=== PATIENT | male | born 1990 | race Two or more races ===

== ENCOUNTER 2020-06-19 23:02 | Emergency (ER) | payer MEDICAID ==
[2020-06-19] MEDS ORDERED: LORazepam 2 MG/ML SDV IVPUSH ONE (23:26)
--- NOTE | 2020-06-19 23:27 | EDM.PDOC ---
ED HPI GENERAL MEDICAL PROBLEM - General Chief Complaint: Drug or Alcohol Abuse Stated Complaint: HIGH BLOOD PRESSURE, DETOX Time Seen by Provider: 06/19/20 23:04 - History of Present Illness INITIAL COMMENTS - FREE TEXT/NARRATIVE: 30-year-old male with history of alcohol abuse who typically drinks half a liter to 1 L of liquor daily last drink at 4 AM or roughly 20 hours ago who is presenting with tremors anxiety and palpitations. Patient reports that only a few days ago he nearly completed detox and has been weaned down on Librium. However he left detox and immediately started drinking again drink for 2 days and stopped at 4 AM. He comes down here to try and live with his grandparents and stop drinking. He reports a history of epilepsy as well he takes medical marijuana as well as medicines for hypertension. He reports that he did take a dose of his medical marijuana this evening. No abdominal pain no nausea no vomiting no chest pain no shortness of breath. Symptoms are constant gradually worsening improved by alcohol no radiation or other associated symptoms. He denies hallucinations. - Related Data Allergies Allergy/AdvReac Type Severity Reaction Status Date / Time clarithromycin [From Biaxin] Allergy Rash Verified 06/19/20 23:14 risperidone [From Risperdal] Allergy Rash Verified 06/19/20 23:14 Home Meds: Home Meds OXcarbazepine [Trileptal] 450 mg PO BID 06/19/20 [History] levETIRAcetam [Keppra] 1,500 mg PO BID 06/19/20 [History] chlordiazePOXIDE [Librium] 25 mg PO TID PRN 3 Days #12 cap 06/20/20 [Rx] ED ROS GENERAL - Review of Systems Review Of Systems: See Below Free Text/Narrative/Comment: General: No fever. Skin: No rash. Eyes: No vision problems. ENT: No sore throat. Neck: No neck stiffness. Respiratory: No shortness of breath. Cardiac: No chest pain. Gastrointestinal: No nausea, vomiting or abdominal pain. Urinary: No dysuria. Musculoskeletal: No myalgias/arthralgias. Neurologic: Per HPI ED EXAM, GENERAL - Physical Exam Exam: See Below Free Text/Narrative:: General Appearance: No acute distress, appears comfortable Skin: No rash HEENT: Normocephalic/atraumatic, sclera anicteric, mucous membranes moist Neck: Normal range of motion Chest and Lungs: Bilateral breath sounds, clear to auscultation Cardiovascular: Minimally tachycardic rate regular rhythm Abdomen: Soft, non-tender Back: Normal Musculoskeletal: No edema or tenderness Neurologic: Tremor with tongue fasciculations mild anxiety, no internal stimuli no seizure-like activity, no diaphoresis Psychiatric: Appropriate, cooperative Course - Vital Signs Last Recorded V/S: Last Vital Signs Temp 97.3 F 06/19/20 23:19 Pulse 102 H 06/19/20 23:19 Resp 18 06/19/20 23:19 BP 143/96 H 06/19/20 23:19 Pulse Ox 98 06/19/20 23:19 - Orders/Labs/Meds Labs: Laboratory Tests 06/19/20 06/19/20 Range/Units 23:30 23:30 WBC 4.72 (4.0-11.0) K/uL RBC 4.24 L (4.50-5.90) M/uL Hgb 15.0 (13.0-17.0) g/dL Hct 42.0 (38.0-50.0) % MCV 99.1 H (80.0-98.0) fL MCH 35.4 H (27.0-32.0) pg MCHC 35.7 (31.0-37.0) g/dL RDW Std Deviation 44.1 (28.0-62.0) fl RDW Coeff of Kenzie 12 (11.0-15.0) % Plt Count 167 (150-400) K/uL MPV 10.30 (7.40-12.00) fL Neut % (Auto) 54.7 (48.0-80.0) % Lymph % (Auto) 29.4 (16.0-40.0) % [place] % (Auto) 14.0 (0.0-15.0) % Eos % (Auto) 0.8 (0.0-7.0) % Baso % (Auto) 1.1 (0.0-1.5) % Neut # (Auto) 2.6 (1.4-5.7) K/uL Lymph # (Auto) 1.4 (0.6-2.4) K/uL [place] # (Auto) 0.7 (0.0-0.8) K/uL Eos # (Auto) 0.0 (0.0-0.7) K/uL Baso # (Auto) 0.1 (0.0-0.1) K/uL Nucleated RBC % 0.0 /100WBC Nucleated RBCs # 0 K/uL Sodium 137 (136-148) mmol/L Potassium 3.7 (3.5-5.1) mmol/L Chloride 99 (98-107) mmol/L Carbon Dioxide 28.5 (21.0-32.0) mmol/L BUN 11 (7.0-18.0) mg/dL Creatinine 0.9 (0.8-1.3) mg/dL Est Cr Clr Drug Dosing 103.95 mL/min Estimated GFR (MDRD) > 60.0 ml/min Glucose 97 (74-106) mg/dL Calcium 9.5 (8.5-10.1) mg/dL Magnesium 1.8 (1.8-2.4) mg/dL Total Bilirubin 0.5 (0.2-1.0) mg/dL AST 60 H (15-37) IU/L ALT 60 (14-63) IU/L Alkaline Phosphatase 69 (46-116) U/L Total Protein 7.6 (6.4-8.2) g/dL Albumin 4.2 (3.4-5.0) g/dL Globulin 3.4 (2.6-4.0) g/dL Albumin/Globulin Ratio 1.2 (0.9-1.6) Ethyl Alcohol <3 mg/dL Meds: Medications Discontinued Medications Generic Name Dose Route Start Last Admin Trade Name Freq PRN Reason Stop Dose Admin Lorazepam 2 mg 06/19/20 23:26 06/19/20 23:34 Ativan IVPUSH 06/19/20 23:27 2 mg ONETIME ONE Administration Departure - Departure Time of Disposition: 00:28 Disposition: Home, Self-Care 01 Condition: Good Clinical Impression: Alcohol withdrawal - Discharge Information *PRESCRIPTION DRUG MONITORING PROGRAM REVIEWED*: Not Applicable *COPY OF PRESCRIPTION DRUG MONITORING REPORT IN PATIENT KATYA: Not Applicable Prescriptions: chlordiazePOXIDE [Librium] 25 mg PO TID PRN 3 Days #12 cap PRN Reason: Withdrawal Symptoms Instructions: Alcohol Withdrawal Syndrome, [id number] Referrals: Derek Kapoor [Ordering Only Provider] - Forms: ED Department Discharge Sepsis Event Note (ED) - Evaluation Sepsis Screening Result: No Definite Risk - Focused Exam Vital Signs: Vital Signs Temp Pulse Resp BP Pulse Ox 06/19/20 23:19 97.3 F 102 H 18 143/96 H 98 - Assessment/Plan Assessment:: 30-year-old male presenting with signs and symptoms consistent with alcohol withdrawal. Patient has minimal vital sign abnormalities and some tremor and last used about 20 hours ago. Patient was given 2 mg of IV Ativan with good effect his vital signs normalized his heart rate is in the 70s is blood pressure is 119 systolic. Patient's tremor has likewise resolved. Patient is currently staying with his grandparents who do not drink. Unfortunately there is no Librium in the [facility] pharmacy. Given the degree of his alcohol use I would not send him home with Ativan. 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 Strict return precautions discussed and understood vital signs have normalized his labs are good including magnesium.
[2020-06-20 00:05] LABS: BLOOD UREA NITROGEN,BUN 11 mg/dL (7.0-18.0); CARBON DIOXIDE,CO2 28.5 mmol/L (21.0-32.0); CHLORIDE,CL 99 mmol/L (98-107); GLUCOSE RANDOM 97 mg/dL (74-106); POTASSIUM,K 3.7 mmol/L (3.5-5.1); SODIUM,NA 137 mmol/L (136-148)
== END 2020-06-20 00:45 | disposition home or self-care (01) ==
LOC: MW.ED 23:02
DX: F10.239 Alcohol dependence with withdrawal, unspecified (principal); Z88.1 Allergy status to other antibiotic agents; Z88.8 Allergy status to other drugs, medicaments and biological substances; Z79.899 Other long term (current) drug therapy
CPT/HCPCS: 36415; 80053; 80307; 83735; 85025; 96374; 99284; J2060; 99283